=== PATIENT | female | born 1965 ===

== ENCOUNTER 2018-03-07 19:40 | Emergency (ER) | payer MEDICAID, OTHER ==
[2018-03-07 19:47] VITALS: RESP 18; TEMP 99.1
--- NOTE | 2018-03-07 21:02 | ED PDOC ---
Lower Extremity Pain/Injury Time Seen by Provider: 03/07/18 19:45 Chief Complaint (Nursing): Lower Extremity Problem/Injury Chief Complaint (Provider): Lower Extremity Problem/Injury History Per: Patient History/Exam Limitations: no limitations Onset/Duration Of Symptoms: Hrs Current Symptoms Are (Timing): Still Present Additional Complaint(s): 53 year old female with a past medical history of HTN and diabetes presents to the ED after slipping outside her house on uneven concrete thus twisting her ankle. Patient is also complaining of swelling and pain. Patient is now in significant pain. PMD: None Provided - Ankle/Foot Description Of Injury: Fell Past Medical History Reviewed: Historical Data, Nursing Documentation, Vital Signs Vital Signs: Last Vital Signs Temp 99.1 F 03/07/18 19:44 Pulse 66 03/07/18 19:44 Resp 18 03/07/18 19:44 BP 134/51 L 03/07/18 19:44 Pulse Ox 98 03/07/18 19:44 - Medical History PMH: HTN - Surgical History Surgical History: Cholecystectomy - Family History Family History: States: No Known Family Hx - Social History Current smoker - smoking cessation education provided: No Alcohol: None Drugs: Denies - Home Medications Home Medications: Ambulatory Orders Medication Instructions Recorded Acetaminophen [Tylenol 325mg tab] 650 mg PO Q6H PRN #50 tab 01/14/16 Bismuth Subsalicylate [kaopECTATE] 262 mg PO Q4H PRN #1 bot 01/14/16 Famotidine [Pepcid] 20 mg PO BID #28 tab 01/14/16 Ondansetron [Zofran] 4 mg PO Q8H #9 tab 01/14/16 Walker [Rolling Walker] 1 dev XX PRN PRN #1 dev 03/07/18 - Allergies Allergies/Adverse Reactions: Allergies Allergy/AdvReac Type Severity Reaction Status Date / Time grape Allergy SHORTNESS Verified 01/14/16 15:13 OF BREATH morphine Allergy RASH Verified 01/14/16 15:14 apples Allergy SHORTNESS Uncoded 06/05/14 15:41 OF BREATH pears Allergy SHORTNESS Uncoded 06/05/14 15:41 OF BREATH Review of Systems ROS Statement: Except As Marked, All Systems Reviewed And Found Negative Musculoskeletal: Positive for: Foot Pain (twisted ankle swelling and pain. ) Physical Exam - Reviewed Nursing Documentation Reviewed: Yes Vital Signs Reviewed: Yes - Physical Exam Appears: Positive for: Well, Non-toxic Skin: Positive for: Normal Color, Warm, Dry Cardiovascular/Chest: Positive for: Regular Rate, Rhythm. Negative for: Murmur Respiratory: Positive for: Normal Breath Sounds. Negative for: Respiratory Distress Gastrointestinal/Abdominal: Positive for: Normal Exam, Soft. Negative for: Tenderness Extremity: Positive for: Deformity (left ankle ), Swelling (left ankle swelling of medial malleolus.), Other (neurovascular intact, pedis pulse 2+) Neurologic/Psych: Positive for: Alert, Oriented - ECG O2 Sat by Pulse Oximetry: 98 (RA) Pulse Ox Interpretation: Normal Medical Decision Making Medical Decision Making: Time: 2014 Plan: ankle injury rule out fracture vs dislocation -- Ankle Complete 3 Views BI XR -- Foot 3 Views BI XR -- Toradol 15 mg IV -- Ankle Left 3 Views Routine XR Time:2209 XR Right Foot Complete, 3 or More Views CLINICAL HISTORY: 53 years old, female; Injury or trauma; Fall; Initial encounter; Blunt trauma; Foot; Bilateral; Injury details: Left foot injury right foot comparison TECHNIQUE: Frontal, lateral and oblique views of the right foot. COMPARISON: No relevant prior studies available. FINDINGS: Bones/joints: Small bone spur obtaining is. No acute fracture. No dislocation. Soft tissues: Unremarkable. No radiopaque foreign body. IMPRESSION: Negative for acute bone abnormality Thank you for allowing us to participate in the care of your patient. Dictated and Authenticated by: Deric Nails MD 03/07/2018 10:08 PM Eastern Time ( & [place]) XR Left Foot Complete, 3 or More Views CLINICAL HISTORY: 53 years old, female; Injury or trauma; Fall; Initial encounter; Blunt trauma; Foot; Bilateral; Injury details: Left foot injury right foot comparison TECHNIQUE: Frontal, lateral and oblique views of the left foot. COMPARISON: No relevant prior studies available. FINDINGS: Bones/joints: Small bone spur calcaneus. No acute fracture. No dislocation. Soft tissues: Unremarkable. No radiopaque foreign body. IMPRESSION: Normal left foot x-rays. Small bone spur calcaneus Thank you for allowing us to participate in the care of your patient. Dictated and Authenticated by: Deric Nails MD 03/07/2018 10:02 PM Eastern Time ([place] & [place]) XR Right Ankle Complete, 3 or More Views CLINICAL HISTORY: 53 years old, female; Injury or trauma; Fall; Initial encounter; Blunt trauma; Ankle; Bilateral; Injury details: Left ankle injury right ankle comparison TECHNIQUE: Frontal, lateral and oblique views of the right ankle. COMPARISON: No relevant prior studies available. FINDINGS: Bones/joints: Unremarkable. No acute fracture. No dislocation. Soft tissues: Lateral and anterior soft tissue edema IMPRESSION: Lateral and anterior soft tissue edema. Negative for acute bone abnormality Thank you for allowing us to participate in the care of your patient. Dictated and Authenticated by: Deric Nails MD 03/07/2018 10:10 PM Eastern Time ([place] & [place]) --Patient seen by pulp screen operator, hernandez applied, and was advised to follow up with [facility]/Dr. Elizondo. Scribe Attestation: Documented by Elaina Wahl, acting as a scribe for Dr. Berhane Liao. Provider Scribe Attestation: All medical record entries made by the Scribe were at my direction and personally dictated by me. I have reviewed the chart and agree that the record accurately reflects my personal performance of the history, physical exam, medical decision making, and the department course for this patient. I have also personally directed, reviewed and agree with the discharge instructions and disposition. Disposition - Clinical Impression Clinical Impression: Ankle injury - Patient ED Disposition Is Patient to be Admitted: No Counseled Patient/Family Regarding: Studies Performed, Diagnosis, Need For Followup - Disposition Referrals: [facility] [Outside] Curtis Elizondo III, MD [Staff Provider] - Disposition: Routine/Home Disposition Time: 21:00 Condition: IMPROVED Additional Instructions: follow up with Dr Elizondo within one week take motrin for pain as needed return to ED with any worsening or concerning symptoms Prescriptions: Walker [Rolling Walker] 1 dev XX PRN PRN #1 dev PRN Reason: Pain, Moderate (4-7) Instructions: Ankle Sprain (DC) Forms: [employer] (Maltese) Print Language: RWANDAN
--- NOTE | 2018-03-07 21:26 | CP.PCM.CON ---
History of Present Illness - History of Present Illness History of Present Illness: Consult note for Dr. Elizondo 53 year old female with PMHx including DM, and HTN was seen at bedside for complaint of left ankle pain. She is accompanied by her son. She states that about an hour and a half ago she was leaving her house and twisted her left ankle. She complains of pain to her left ankle and swelling. She also states when she twisted her ankle she fell down to her knees. She states that the pain medication she got in the ED helped reliever her pain a little. She currently denies any n/v/f/sob/cp. Past Patient History - Infectious Disease Hx of Infectious Diseases: None - Past Social History Smoking Status: Former Smoker - CARDIAC Hx Hypertension: Yes - ENDOCRINE/METABOLIC Hx Diabetes Mellitus Type 2: Yes - PSYCHIATRIC Hx Substance Use: No - SURGICAL HISTORY Hx Cholecystectomy: Yes - ANESTHESIA Hx Anesthesia: Yes Hx Anesthesia Reactions: No Meds Home Medications: Home Medication List Medication Instructions Recorded Confirmed Type Walker [Rolling Walker] 1 dev XX PRN PRN #1 dev 03/07/18 Rx Allergies/Adverse Reactions: Allergies Allergy/AdvReac Type Severity Reaction Status Date / Time grape Allergy SHORTNESS Verified 01/14/16 15:13 OF BREATH morphine Allergy RASH Verified 01/14/16 15:14 apples Allergy SHORTNESS Uncoded 06/05/14 15:41 OF BREATH pears Allergy SHORTNESS Uncoded 06/05/14 15:41 OF BREATH Physical Exam - Constitutional Appears: Non-toxic, No Acute Distress - Extremities Exam Additional comments: Lower extremity focused exam: Vasc:DP pulses palpable 2/4 b/l. PT pulse palpable 1/4 on the right, PT pulse non-palpable on the left due to edema. Non-pitting edema noted to the left foot and ankle. CFT < 3 seconds to all digits b/l. Skin temperature warm to warm from proximal to distal. Neuro:Gross sensation intact b/l. Derm:Non-pitting edema noted to left ankle. No ecchymosis, no open lesions noted. Ortho: Patient is able to wiggle toes on the left foot. MMT deferred due to guarding. Pain on palpation of lateral malleolus. - Neurological Exam Neurological exam: Alert, Oriented x3 - Psychiatric Exam Psychiatric exam: Normal Affect, Normal Mood Results - Vital Signs Recent Vital Signs: Last Vital Signs Temp 99.1 F 03/07/18 19:44 Pulse 66 03/07/18 19:44 Resp 18 03/07/18 19:44 BP 134/51 L 03/07/18 19:44 Pulse Ox 98 03/07/18 21:08 Assessment & Plan - Assessment and Plan (Free Text) Assessment: 53 year old female with left ankle sprain Plan: patient examined and evaluated discussed in detail with attending, Dr. Elizondo chart, vitals reviewed radiographs reviewed- no acute fractures or dislocations noted MRI ordered left ankle dressed in well padded posterior splint with a moore compressive dressing patient to remain non-WB to LLE, patient to keep dressing c/d/i until she follows up pain medication per ED attending RICE therapy patient to follow up with Dr. Elizondo in office
[2018-03-07 23:29] VITALS: BP 157/88; PULSE 67
--- NOTE | 2018-03-08 07:44 | RAD ---
PROCEDURE: BILATERAL ANKLE RADIOGRAPHS HISTORY: fall COMPARISON: None available. TECHNIQUE: Three views of the bilateral ankles of been submitted for interpretation. FINDINGS: No acute fracture, dislocation or destructive bony lesions appreciated at the left or right ankles. The bilateral ankle mortise ease are intact. Soft tissues at the right ankle appear unremarkable. Prominent lateral malleolar soft tissue edema is identified extending into the anterior ankle soft tissues as well. Note is made of a small left plantar calcaneal spur. IMPRESSION: Left ankle soft tissue edema. No acute fracture dislocation identified bilaterally. Small plantar calcaneal spur noted.
--- NOTE | 2018-03-08 07:48 | RAD ---
PROCEDURE: BILATERAL FEET RADIOGRAPHS HISTORY: fall COMPARISON: None available. TECHNIQUE: Three views of each foot have been submitted for interpretation. FINDINGS: No acute fracture or destructive bony lesion identified bilaterally. No subluxation or dislocation either. Limited degenerative sclerosis of the cortex of the interphalangeal joints is appreciated bilaterally with joint space narrowing compatible with degenerative joint disease. Local soft tissues appear unremarkable. Patient's tenderness apparently is at the medial tarsus left foot with the frontal view including an arrow placed in this location. No suspicious fire identified here. A small calcaneal spurs noted at the left hindfoot. IMPRESSION: Degenerative changes seen the bilateral interphalangeal joints diffusely but on a mild basis. No acute fracture dislocation bilaterally including the medial left tarsus region. If symptoms persist or worsen follow-up radiography CT or MRI may be considered.
[2018-03-10 21:50] VITALS: O2SAT 98
== END 2018-03-07 23:36 | disposition home or self-care (01) ==
LOC: H.ER 19:40
DX: S93.402A Sprain of unspecified ligament of left ankle, initial encounter (principal); X50.9XXA Other and unspecified overexertion or strenuous movements or postures, initial encounter; Y92.89 Other specified places as the place of occurrence of the external cause; E11.9 Type 2 diabetes mellitus without complications; I10 Essential (primary) hypertension
CPT/HCPCS: 29515; 73610; 73630; 96374; 99285; J1885

== ENCOUNTER 2018-12-22 01:03 | Observation (INO) | payer MEDICAID ==
[2018-12-22] MEDS ORDERED: Iohexol 240 (50 ml) PO STA (01:36)
[2018-12-22] MEDS ORDERED: Iohexol 240 (50 ml) ONE (02:07)
[2018-12-22 02:12] LABS: BASO # 0.1 K/uL (0.0-0.2); BASO % 0.4 % (0.0-2.0); EOS # 0.1 K/uL (0.0-0.7); EOS % 0.9 % (0.0-4.0); HEMOGLOBIN 13.5 g/dL (12.0-16.0); LYMPH # 3.8 K/uL (1.0-4.3); LYMPH % 29.8 % (20.0-40.0); MEAN CELL VOLUME 83.8 fl (81.0-99.0); MEAN CORPUSCULAR HEMOGLOBIN 26.9 pg (27.0-31.0); MEAN CORPUSCULAR HGB CONC 32.1 g/dL (33.0-37.0); MEAN PLATELET VOLUME 8.2 fl (7.2-11.7); MONO # 0.8 K/uL (0.0-0.8); MONO % 6.2 % (0.0-10.0); NEUT % 62.7 % (50.0-75.0); NRBC % 0.1 % (0.0-0.0); RBC 5.03 Mil/uL (3.80-5.20); WHITE BLOOD COUNT 12.8 K/uL (4.8-10.8)
[2018-12-22 02:21] LABS: ALB/GLOB RATIO 1.2 (1.0-2.1); ALBUMIN 4.5 g/dL (3.5-5.0); ALT/SGPT 31 U/L (9-52); AST/SGOT 29 U/L (14-36); BLOOD UREA NITROGEN 17 mg/dl (7-17); CALCIUM 9.3 mg/dL (8.4-10.2); GFR NON-AFRICAN AMERICAN > 60; LIPASE 104 U/L (23-300)
--- NOTE | 2018-12-22 03:05 | ED PDOC ---
HPI: Abdomen Time Seen by Provider: 12/22/18 01:19 Chief Complaint (Nursing): Abdominal Pain Chief Complaint (Provider): abdominal pain History Per: Patient History/Exam Limitations: no limitations Onset/Duration Of Symptoms: Days Current Symptoms Are (Timing): Still Present Associated Symptoms: Nausea, Vomiting. denies: Fever, Chills Additional Complaint(s): Ne Gomez is a 53 year old female, with a past medical history of diabetes and diverticulitis, presents to the emergency department complaining of abdominal pain associated with nausea and vomiting. Patient states she has a history of diverticulitis, she has had x3 bouts in the past and believes this is a recurrence. Patient began having nausea and vomiting x2 today and several episodes of retching. Patient also reports having diarrhea for the past week. She saw her GI x3 days ago and is scheduled to see her surgeon for a surgery for her diverticulitis? Patient has not taken any pain medication today. She denies any fever, chills, night sweats or other medical complaints. PMD: [facility] [place] Past Medical History Reviewed: Historical Data, Nursing Documentation, Vital Signs Vital Signs: Last Vital Signs Temp 98.8 F 12/22/18 01:10 Pulse 85 12/22/18 01:10 Resp 17 12/22/18 01:10 BP 176/87 H 12/22/18 01:10 Pulse Ox 100 12/22/18 01:10 - Medical History PMH: Diabetes, Diverticulitis, HTN - Surgical History Surgical History: Cholecystectomy - Family History Family History: States: Unknown Family Hx - Social History Current smoker - smoking cessation education provided: No Alcohol: None Drugs: Denies - Home Medications Home Medications: Ambulatory Orders Medication Instructions Recorded Acetaminophen [Tylenol 325mg tab] 650 mg PO Q6H PRN #50 tab 01/14/16 Bismuth Subsalicylate [kaopECTATE] 262 mg PO Q4H PRN #1 bot 01/14/16 Famotidine [Pepcid] 20 mg PO BID #28 tab 01/14/16 Ondansetron [Zofran] 4 mg PO Q8H #9 tab 01/14/16 Walker [Rolling Walker] 1 dev XX PRN PRN #1 dev 03/07/18 - Allergies Allergies/Adverse Reactions: Allergies Allergy/AdvReac Type Severity Reaction Status Date / Time cortisone Allergy RASH Verified 12/22/18 01:14 grape Allergy SHORTNESS Verified 12/22/18 01:14 OF BREATH morphine Allergy RASH Verified 12/22/18 01:14 apples Allergy SHORTNESS Uncoded 12/22/18 01:14 OF BREATH pears Allergy SHORTNESS Uncoded 12/22/18 01:14 OF BREATH Review of Systems ROS Statement: Except As Marked, All Systems Reviewed And Found Negative Constitutional: Negative for: Fever, Chills, Sweats Gastrointestinal: Positive for: Nausea, Vomiting, Abdominal Pain Physical Exam - Reviewed Nursing Documentation Reviewed: Yes Vital Signs Reviewed: Yes - Physical Exam Appears: Positive for: Uncomfortable (Patient actively retching and unable to stand still due to abdominal pain) Head Exam: Positive for: ATRAUMATIC, NORMAL INSPECTION, NORMOCEPHALIC Skin: Positive for: Normal Color, Warm, Dry Eye Exam: Positive for: Normal appearance, EOMI, PERRL Neck: Positive for: Normal, Painless ROM, Supple Cardiovascular/Chest: Positive for: Regular Rate, Rhythm. Negative for: Murmur Respiratory: Positive for: Normal Breath Sounds. Negative for: Respiratory Distress Gastrointestinal/Abdominal: Positive for: Tenderness (on palpation of LLQ). Negative for: Guarding, Rebound Back: Positive for: Normal Inspection. Negative for: L CVA Tenderness, R CVA Tenderness, Vertebral Tenderness Extremity: Positive for: Normal ROM (upper and lower extremities). Negative for: Deformity, Swelling Neurological/Psych: Positive for: Awake, Alert, Normal Tone - Laboratory Results Result Diagrams: 12/22/18 02:00 12/22/18 02:00 Lab Results: Total Bilirubin 0.2 mg/dl (0.2-1.3) 12/22/18 02:00 AST 29 U/L (14-36) 12/22/18 02:00 ALT 31 U/L (9-52) 12/22/18 02:00 Alkaline Phosphatase 101 U/L (38-126) 12/22/18 02:00 Total Protein 8.2 G/DL (6.3-8.2) 12/22/18 02:00 Albumin 4.5 g/dL (3.5-5.0) 12/22/18 02:00 Globulin 3.8 gm/dL (2.2-3.9) 12/22/18 02:00 Albumin/Globulin Ratio 1.2 (1.0-2.1) 12/22/18 02:00 Lipase 104 U/L (23-300) 12/22/18 02:00 - ECG O2 Sat by Pulse Oximetry: 100 (RA) Pulse Ox Interpretation: Normal Medical Decision Making Medical Decision Making: Time: 01:19 Initial Impression: abdominal pain Initial Plan: --Abd Pelvis PO & IV Contrast [CT] --CMP --Lipase --CBC w/ differential --Bentyl 10 mg IM --Omnipaque 240 50 ml Po --Toradol 30 mg IVP --Zofran Inj 4 mg IVP --Reevaluation 5:[address] FINDINGS: LUNG BASES: The lung bases appear clear. No pleural effusions are seen. LIVER: Unremarkable. GALLBLADDER AND BILE DUCTS: The gallbladder appears within normal limits. No radioopaque gallstones are seen. No biliary ductal dilatation is evident. PANCREAS: Unremarkable. SPLEEN: Unremarkable. ADRENAL GLANDS: Unremarkable. KIDNEYS, URETERS, AND BLADDER: The kidneys appear within normal limits. There is no hydronephrosis or hydroureter. No urinary calculi are seen. STOMACH AND BOWEL: There is diverticulosis noted involving descending and sigmoid colon. There is marked inflammatory stranding noted adjacent to the distal descending colon compatible with acute diverticulitis. No abscess or free air. APPENDIX: No evidence of acute appendicitis on CT examination. PERITONEUM: No free fluid. No free air. LYMPH NODES: No lymphadenopathy is evident. REPRODUCTIVE: Unremarkable as visualized. VASCULATURE: No evidence of abdominal aortic aneurysm. BONES: No aggressive appearing osseous lesion. No acute osseous pathology evident. IMPRESSION: Acute descending colonic diverticulitis. Scribe Attestation: Documented by Toni Carmen, acting as a scribe for Clary Desai PA-C Provider Scribe Attestation: All medical record entries made by the Scribe were at my direction and personally dictated by me. I have reviewed the chart and agree that the record accurately reflects my personal performance of the history, physical exam, medic al decision making, and the department course for this patient. I have also personally directed, reviewed, and agree with the discharge instructions and disposition. 06:15am: pt re-assessed, pain has improved but remains steady and patient now noting that she had a BM with hematochezia. Case discussed with Jose Singh and care transferred. Patient admitted for diverticulitis. Disposition - Clinical Impression Clinical Impression: Diverticulitis - Patient ED Disposition Is Patient to be Admitted: Yes Discussed With Dr.: Jose Singh - Disposition Disposition: Routine/Home Disposition Time: 07:00 Condition: FAIR Instructions: Diverticulitis (DC) Forms: [facility] (Bhutanese) Print Language: TURKMEN
[2018-12-22] MEDS ORDERED: Sodium Chloride 0.9% 50 ML IV ONE (04:17)
[2018-12-22] MEDS ORDERED: Iohexol 300 100 ML IJ ONE (04:17)
[2018-12-22] MEDS ORDERED: Ciprofloxacin 200mg/100ml D5W 100 ML IVPB STA (06:56)
[2018-12-22] MEDS ORDERED: metroNIDAZOLE 500mg/100ml NS 100 ML IVPB STA (06:56)
[2018-12-22] MEDS ORDERED: Sodium Chloride 0.9% 1,000 ML IV STA (07:04)
[2018-12-22] MEDS: Sodium Chloride 0.9% 1,000 ML IV SCH ×2 (08:25→16:40)
[2018-12-22] MEDS: metroNIDAZOLE 500mg/100ml NS 100 ML IVPB SCH ×2 (11:26→16:40)
[2018-12-22] MEDS: Ciprofloxacin 400mg/200ml D5W 400 MG/200 ML BAG IVPB SCH ×2 (11:26→20:40)
--- NOTE | 2018-12-22 15:14 | CT ---
Date of service: 12/22/2018 PROCEDURE: CT abdomen and pelvis HISTORY: N/V, diarrhea COMPARISON: Comparison made with prior CT scan abdomen and pelvis 11/14/2013. TECHNIQUE: Contiguous axial images of the the abdomen and pelvis. Oral contrast was administered. No IV contrast given. Coronal and Sagittal reformats generated. Radiation dose: Total exam DLP = 834.68 mGy-cm. This CT exam was performed using one or more of the following dose reduction techniques: Automated exposure control, adjustment of the mA and/or kV according to patient size, and/or use of iterative reconstruction technique. FINDINGS: LOWER THORAX: Minor atelectasis/scarring changes seen both lung bases including the middle lobe and lingular regions. Heart size within range of normal. No significant pericardial effusion. There is a small hiatal hernia. LIVER: Liver is enlarged measuring over 22 cm in CC dimension. Mild diffuse fatty hepatic infiltration. No obvious hepatic mass collection or calcification. The portal the and splenic veins are opacified. GALLBLADDER AND BILE DUCTS: Cholecystectomy. Slight prominence of the common bile duct. PANCREAS: Unremarkable. No mass. No ductal dilatation. SPLEEN: Spleen exhibits normal size and attenuation pattern without mass collection or calcification. ADRENALS: There are no adrenal lesions. KIDNEYS AND URETERS: Kidneys demonstrate relatively symmetric nephrograms. No evidence of nephrolithiasis or hydronephrosis. BLADDER: Urinary bladder is partially distended. No evidence of intraluminal urinary bladder calculi. REPRODUCTIVE: Suspect uterine fibroids. Follow-up pelvic ultrasound could confirm. APPENDIX: Appendix is unremarkable. BOWEL: Evaluation of the bowel is somewhat limited due to incomplete opacification. Stomach is unopacified and incompletely distended with slight thick-walled appearance. Visualized loops of small bowel exhibit normal contour and caliber. No evidence of acute mechanical small bowel obstruction. There are scattered colonic diverticula the bulk of which arise from the sigmoid and descending colon. There is localized wall thickening of a short segment of the mid to distal descending colon consistent with acute diverticulitis. Mild infiltration and suspected small amount of fluid in the adjacent mesentery felt to be present. PERITONEUM: Unremarkable. No fluid collection. No free air. There is a small fat containing umbilical hernia. There is a tiny fat containing bilateral inguinal hernias are present. LYMPH NODES: There are a few tiny nonspecific retroperitoneal lymph nodes. VASCULATURE: Unremarkable. No aortic aneurysm. No aortic atherosclerotic calcification or mural plaque present. BONES: Minor multilevel degenerative spondylosis of the thoracic spine. OTHER FINDINGS: None. IMPRESSION: Diverticulosis with additional findings consistent with acute diverticulitis involving a short segment of the mid distal descending colon. Hepatomegaly with mild to moderate fatty hepatic infiltration. Cholecystectomy with slight prominence of the common bile duct. Suspect uterine fibroids. Follow-up pelvic ultrasound could confirm.
--- NOTE | 2018-12-22 19:10 | CP.PCM.HP ---
History of Present Illness - History of Present Illness History of Present Illness: pt sdmitted for diverticulitis at present no fcnvd bw and imaging noted gi cosnult appriciated Present on Admission - Present on Admission Any Indicators Present on Admission: Yes History of Uncontrolled Diabetes: Yes Review of Systems - Gastrointestinal Gastrointestinal: As Per HPI, Abdominal Pain, Diarrhea, Hematochezia, Nausea Past Patient History - Infectious Disease Hx of Infectious Diseases: None - Past Medical History & Family History Past Medical History?: Yes - Past Social History Smoking Status: Never Smoked - CARDIAC Hx Hypertension: Yes - PULMONARY Hx Asthma: Yes - ENDOCRINE/METABOLIC Hx Endocrine Disorders: Yes - HEMATOLOGICAL/ONCOLOGICAL Hx AIDS: No (denies) Hx Human Immunodeficiency Virus (HIV): No (denies) - MUSCULOSKELETAL/RHEUMATOLOGICAL Hx Falls: Yes (february 2018) - GASTROINTESTINAL Hx Diverticulitis: Yes Hx Nausea: Yes - PSYCHIATRIC Hx Substance Use: No (denies) - SURGICAL HISTORY Hx Cholecystectomy: Yes - ANESTHESIA Hx Anesthesia: Yes Hx Anesthesia Reactions: No Hx Malignant Hyperthermia: No Has any member of the family had a problem w/ anesthesia?: No Meds Allergies/Adverse Reactions: Allergies Allergy/AdvReac Type Severity Reaction Status Date / Time cortisone Allergy RASH Verified 12/22/18 01:14 grape Allergy SHORTNESS Verified 12/22/18 01:14 OF BREATH morphine Allergy RASH Verified 12/22/18 01:14 apples Allergy SHORTNESS Uncoded 12/22/18 01:14 OF BREATH pears Allergy SHORTNESS Uncoded 12/22/18 01:14 OF BREATH Results - Vital Signs Recent Vital Signs: Last Vital Signs Temp 97.9 F 12/22/18 16:33 Pulse 72 12/22/18 16:33 Resp 18 12/22/18 16:33 BP 146/83 12/22/18 16:33 Pulse Ox 97 12/22/18 16:33 - Labs Result Diagrams: 12/22/18 02:00 12/22/18 02:00 Labs: Laboratory Results - last 24 hr 12/22/18 12/22/18 12/22/18 02:00 02:00 08:17 WBC 12.8 H RBC 5.03 Hgb 13.5 Hct 42.1 MCV 83.8 MCH 26.9 L MCHC 32.1 L RDW 14.0 Plt Count 321 MPV 8.2 Neut % (Auto) 62.7 Lymph % (Auto) 29.8 [place] % (Auto) 6.2 Eos % (Auto) 0.9 Baso % (Auto) 0.4 Neut # (Auto) 8.0 H Lymph # (Auto) 3.8 [place] # (Auto) 0.8 Eos # (Auto) 0.1 Baso # (Auto) 0.1 Sodium 141 Potassium 3.6 Chloride 102 Carbon Dioxide 30 Anion Gap 13 BUN 17 Creatinine 0.9 Est GFR ( Amer) > 60 Est GFR (Non-Af Amer) > 60 POC Glucose (mg/dL) 101 Random Glucose 98 Calcium 9.3 Total Bilirubin 0.2 AST 29 ALT 31 Alkaline Phosphatase 101 Total Protein 8.2 Albumin 4.5 Globulin 3.8 Albumin/Globulin Ratio 1.2 Lipase 104 12/22/18 12/22/18 11:11 15:34 WBC RBC Hgb Hct MCV MCH MCHC RDW Plt Count MPV Neut % (Auto) Lymph % (Auto) [place] % (Auto) Eos % (Auto) Baso % (Auto) Neut # (Auto) Lymph # (Auto) [place] # (Auto) Eos # (Auto) Baso # (Auto) Sodium Potassium Chloride Carbon Dioxide Anion Gap BUN Creatinine Est GFR ( Amer) Est GFR (Non-Af Amer) POC Glucose (mg/dL) 93 95 Random Glucose Calcium Total Bilirubin AST ALT Alkaline Phosphatase Total Protein Albumin Globulin Albumin/Globulin Ratio Lipase Decision To Admit - Pt Status Changed To: Hospital Disposition Of: Observation - . Bed Request Type: Med/Surg Admitting Physician: Azucena Mckeon
[2018-12-23] MEDS: Sodium Chloride 0.9% 1,000 ML IV SCH ×2 (01:44→01:45)
[2018-12-23] MEDS: metroNIDAZOLE 500mg/100ml NS 100 ML IVPB SCH ×3 (01:48→16:52)
[2018-12-23 06:24] LABS: BASO # 0.1 K/uL (0.0-0.2); BASO % 0.7 % (0.0-2.0); EOS # 0.1 K/uL (0.0-0.7); EOS % 1.2 % (0.0-4.0); HEMOGLOBIN 12.3 g/dL (12.0-16.0); LYMPH # 2.7 K/uL (1.0-4.3); LYMPH % 36.7 % (20.0-40.0); MEAN CELL VOLUME 83.5 fl (81.0-99.0); MEAN CORPUSCULAR HEMOGLOBIN 27.6 pg (27.0-31.0); MEAN CORPUSCULAR HGB CONC 33.1 g/dL (33.0-37.0); MEAN PLATELET VOLUME 8.2 fl (7.2-11.7); MONO # 0.6 K/uL (0.0-0.8); NEUT # 3.9 K/uL (1.8-7.0); NEUT % 53.4 % (50.0-75.0); NRBC % 0.2 % (0.0-0.0); RBC 4.47 Mil/uL (3.80-5.20); RED CELL DISTRIBUTION WIDTH 14.3 % (11.5-14.5); WHITE BLOOD COUNT 7.3 K/uL (4.8-10.8)
[2018-12-23 06:32] LABS: ALB/GLOB RATIO 1.1 (1.0-2.1); ALBUMIN 3.4 g/dL (3.5-5.0); ALT/SGPT 33 U/L (9-52); AST/SGOT 23 U/L (14-36); BLOOD UREA NITROGEN 7 mg/dl (7-17); CALCIUM 8.1 mg/dL (8.4-10.2); GFR NON-AFRICAN AMERICAN > 60
--- NOTE | 2018-12-23 07:56 | CON ---
DATE: 12/22/2018 REFERRING PHYSICIAN: Rusty Singh DPM REASON FOR CONSULTATION: Abdominal pain. HISTORY OF PRESENT ILLNESS: This is a very pleasant 53-year-old female with a history of diverticulitis episode in this year. Had nausea, vomiting, abdominal pain, and discomfort. Has some diarrhea as well. The patient saw her GI recently and was scheduled to have elective surgery. Now comes to the hospital with abdominal pain and discomfort. PAST MEDICAL HISTORY: As above. PAST SURGICAL HISTORY: As above. MEDICATIONS: Have been reviewed. REVIEW OF SYSTEMS: All other systems have been reviewed and negative apart from the HPI. PHYSICAL EXAMINATION: VITAL SIGNS: Here in the hospital, grossly unremarkable. GENERAL: This is a pleasant middle-aged female, lying in bed comfortably, in no apparent distress. HEENT: Head: Normocephalic and atraumatic. Eyes: Pupils are equally reactive to light bilaterally. No conjunctival pallor or icterus. NECK: Supple. Normal range of motion. No lymphadenopathy appreciated. LUNGS: Coarse breath sounds bilaterally. HEART: S1 and S2. Regular rate and rhythm. No murmurs appreciated. ABDOMEN: Soft. Tender to deep palpation in the left lower quadrant. No rebound. No guarding. RECTAL: Deferred. EXTREMITIES: Pulses felt bilaterally. SKIN: Warm, dry and intact. NEUROLOGIC: A and O x3. LABORATORY DATA: Labs and radiology have been reviewed. WBC 12, hemoglobin is stable. CAT scan is pending. ASSESSMENT AND PLAN: This is a 53-year-old female with likely recurrent diverticulitis. Antibiotics for now. Pain control as needed. Once pain free, can start . Elective surgery when stable. Thank you for the consult. Marvin Bradley MD/ PhD cc: Rusty Singh DPM
--- NOTE | 2018-12-23 08:50 | CP.PCM.PN ---
Subjective - Date & Time of Evaluation Date of Evaluation: 12/23/18 Time of Evaluation: 08:49 - Subjective Subjective: no overnight events Objective - Vital Signs/Intake and Output Vital Signs (last 24 hours): Temp Pulse Resp BP Pulse Ox 97.3 F L 70 20 132/79 97 12/23/18 08:17 12/23/18 08:17 12/23/18 08:17 12/23/18 08:17 12/23/18 08:17 - Medications Medications: Current Medications Dicyclomine HCl (Bentyl) 10 mg IM QID PRN PRN Reason: pain 4-7 Last Admin: 12/23/18 04:47 Dose: 10 mg Famotidine (Pepcid) 20 mg IVP Q12 [facility]ON Last Admin: 12/22/18 21:48 Dose: 20 mg Ciprofloxacin (Cipro 400mg/200ml Dsw) 400 mg in 200 mls @ 200 mls/hr IVPB Q12 LYNDON; Protocol Last Admin: 12/22/18 20:40 Dose: 200 mls/hr Metronidazole (Flagyl 500mg/100ml Ns) 100 mls @ 100 mls/hr IVPB Q8 LYNDON; Protocol Last Admin: 12/23/18 01:48 Dose: 100 mls/hr Ketorolac Tromethamine (Toradol) 30 mg IVP Q6 PRN PRN Reason: Pain, severe (8-10) Last Admin: 12/22/18 20:38 Dose: 30 mg - Labs Labs: 12/23/18 05:08 12/23/18 05:08 - Neck Exam Neck Exam: Normal Inspection - Respiratory Exam Respiratory Exam: Clear to Ausculation Bilateral, NORMAL BREATHING PATTERN - Cardiovascular Exam Cardiovascular Exam: REGULAR RHYTHM - GI/Abdominal Exam GI & Abdominal Exam: Soft, Normal Bowel Sounds - Rectal Exam Rectal Exam: NORMAL INSPECTION Assessment and Plan - Assessment and Plan (Free Text) Assessment: 53 yo female with recurrent diverticulitis abx ADAT elective resection
[2018-12-23] MEDS: Ciprofloxacin 400mg/200ml D5W 400 MG/200 ML BAG IVPB SCH ×2 (09:05→21:18)
--- NOTE | 2018-12-23 13:36 | CP.PCM.PN ---
Subjective - Date & Time of Evaluation Date of Evaluation: 12/23/18 Time of Evaluation: 13:36 - Subjective Subjective: pt doing well, decr pain as per pt. no f/,c n/v/d. wants to eat full note dictated [id number] Objective - Vital Signs/Intake and Output Vital Signs (last 24 hours): Temp Pulse Resp BP Pulse Ox 97.3 F L 70 20 132/79 97 12/23/18 08:17 12/23/18 08:17 12/23/18 08:17 12/23/18 08:17 12/23/18 08:17 - Medications Medications: Current Medications Dicyclomine HCl (Bentyl) 10 mg IM QID PRN PRN Reason: pain 4-7 Last Admin: 12/23/18 04:47 Dose: 10 mg Famotidine (Pepcid) 20 mg IVP Q12 LYNDON Last Admin: 12/23/18 09:11 Dose: 20 mg Ciprofloxacin (Cipro 400mg/200ml Dsw) 400 mg in 200 mls @ 200 mls/hr IVPB Q12 LYNDON; Protocol Last Admin: 12/23/18 09:05 Dose: 200 mls/hr Metronidazole (Flagyl 500mg/100ml Ns) 100 mls @ 100 mls/hr IVPB Q8 LYNDON; Protocol Last Admin: 12/23/18 12:36 Dose: 100 mls/hr Ketorolac Tromethamine (Toradol) 30 mg IVP Q6 PRN PRN Reason: Pain, severe (8-10) Last Admin: 12/23/18 09:20 Dose: 30 mg - Labs Labs: 12/23/18 05:08 12/23/18 05:08
[2018-12-24] MEDS: metroNIDAZOLE 500mg/100ml NS 100 ML IVPB SCH ×3 (01:22→16:37)
[2018-12-24 06:49] LABS: BASO # 0.1 K/uL (0.0-0.2); BASO % 0.7 % (0.0-2.0); EOS # 0.1 K/uL (0.0-0.7); EOS % 1.8 % (0.0-4.0); HEMOGLOBIN 12.9 g/dL (12.0-16.0); LYMPH # 2.8 K/uL (1.0-4.3); LYMPH % 38.7 % (20.0-40.0); MEAN CELL VOLUME 84.1 fl (81.0-99.0); MEAN CORPUSCULAR HEMOGLOBIN 26.9 pg (27.0-31.0); MEAN CORPUSCULAR HGB CONC 31.9 g/dL (33.0-37.0); MEAN PLATELET VOLUME 8.4 fl (7.2-11.7); MONO # 0.5 K/uL (0.0-0.8); MONO % 7.4 % (0.0-10.0); NEUT # 3.7 K/uL (1.8-7.0); NEUT % 51.4 % (50.0-75.0); NRBC % 0.1 % (0.0-0.0); RBC 4.79 Mil/uL (3.80-5.20); RED CELL DISTRIBUTION WIDTH 14.3 % (11.5-14.5); WHITE BLOOD COUNT 7.2 K/uL (4.8-10.8)
[2018-12-24 07:03] LABS: ALBUMIN 3.9 g/dL (3.5-5.0); ALT/SGPT 32 U/L (9-52); AST/SGOT 28 U/L (14-36); BLOOD UREA NITROGEN 6 mg/dl (7-17); CALCIUM 8.7 mg/dL (8.4-10.2); GFR NON-AFRICAN AMERICAN > 60
--- NOTE | 2018-12-24 08:27 | CP.PCM.PN ---
Subjective - Date & Time of Evaluation Date of Evaluation: 12/24/18 Time of Evaluation: 08:27 - Subjective Subjective: pt doign well. no f/,c n/v/d. minimal pian. requesting food. gi consult appriciated. Objective - Vital Signs/Intake and Output Vital Signs (last 24 hours): Temp Pulse Resp BP Pulse Ox 97.4 F L 69 18 121/80 96 12/24/18 00:31 12/24/18 00:31 12/24/18 00:31 12/24/18 00:31 12/24/18 00:31 - Medications Medications: Current Medications Dicyclomine HCl (Bentyl) 10 mg IM QID PRN PRN Reason: pain 4-7 Last Admin: 12/23/18 04:47 Dose: 10 mg Diltiazem HCl (Cardizem) 30 mg PO TID [facility] Famotidine (Pepcid) 20 mg IVP Q12 LYNDON Last Admin: 12/23/18 21:19 Dose: 20 mg Ciprofloxacin (Cipro 400mg/200ml Dsw) 400 mg in 200 mls @ 200 mls/hr IVPB Q12 [facility]ON; Protocol Last Admin: 12/23/18 21:18 Dose: 200 mls/hr Metronidazole (Flagyl 500mg/100ml Ns) 100 mls @ 100 mls/hr IVPB Q8 L[facility]NDON; Protocol Last Admin: 12/24/18 01:22 Dose: 100 mls/hr Ketorolac Tromethamine (Toradol) 30 mg IVP Q6 PRN PRN Reason: Pain, severe (8-10) Last Admin: 12/23/18 19:02 Dose: 30 mg Losartan Potassium (Cozaar) 25 mg PO DAILY [facility] Metformin HCl (Glucophage) 500 mg PO DAILY L[facility] Sertraline HCl (Zoloft) 50 mg PO HS LYNDON Last Admin: 12/23/18 21:18 Dose: 50 mg - Labs Labs: 12/24/18 05:25 12/24/18 05:25 - Constitutional Appears: Well, Non-toxic, No Acute Distress - Head Exam Head Exam: ATRAUMATIC, NORMAL INSPECTION, NORMOCEPHALIC - Eye Exam Eye Exam: EOMI, Normal appearance, PERRL Pupil Exam: NORMAL ACCOMODATION, PERRL - ENT Exam ENT Exam: Mucous Membranes Moist, Normal Exam - Neck Exam Neck Exam: Full ROM, Normal Inspection. absent: Lymphadenopathy - Respiratory Exam Respiratory Exam: Clear to Ausculation Bilateral, NORMAL BREATHING PATTERN - Cardiovascular Exam Cardiovascular Exam: REGULAR RHYTHM, RRR, +S1, +S2. absent: Murmur - GI/Abdominal Exam GI & Abdominal Exam: Soft, Normal Bowel Sounds. absent: Tenderness - Extremities Exam Extremities Exam: Full ROM, Normal Capillary Refill, Normal Inspection. absent: Joint Swelling, Pedal Edema - Back Exam Back Exam: NORMAL INSPECTION - Neurological Exam Neurological Exam: Alert, Awake, CN II-XII Intact, Normal Gait, Oriented x3 - Psychiatric Exam Psychiatric exam: Normal Affect, Normal Mood - Skin Skin Exam: Dry, Intact, Normal Color, Warm Assessment and Plan (1) DVT prophylaxis Assessment & Plan: scd nad ae hose ambulation Status: Acute (2) Diverticulitis Assessment & Plan: gi adv to bland today pain and nausea contro; ivf cipro/flagyl likely dc today Status: Acute
[2018-12-24 08:30] VITALS: RESP 20; TEMP 97.9
[2018-12-24] MEDS ORDERED: Potassium Chloride 20 mEq ER Tab PO ONE (09:39)
[2018-12-24] MEDS: Ciprofloxacin 400mg/200ml D5W 400 MG/200 ML BAG IVPB SCH (09:58)
--- NOTE | 2018-12-24 10:16 | CP.PCM.PN ---
Subjective - Date & Time of Evaluation Date of Evaluation: 12/24/18 Time of Evaluation: 10:15 - Subjective Subjective: no overnight events Objective - Vital Signs/Intake and Output Vital Signs (last 24 hours): Temp Pulse Resp BP Pulse Ox 97.9 F 75 20 148/85 95 12/24/18 08:29 12/24/18 09:58 12/24/18 08:29 12/24/18 09:58 12/24/18 08:29 - Medications Medications: Current Medications Dicyclomine HCl (Bentyl) 10 mg IM QID PRN PRN Reason: pain 4-7 Last Admin: 12/23/18 04:47 Dose: 10 mg Diltiazem HCl (Cardizem) 30 mg PO TID [facility] Last Admin: 12/24/18 09:57 Dose: 30 mg Famotidine (Pepcid) 20 mg IVP Q12 [facility] Last Admin: 12/23/18 21:19 Dose: 20 mg Ciprofloxacin (Cipro 400mg/200ml Dsw) 400 mg in 200 mls @ 200 mls/hr IVPB Q12 LYNDON; Protocol Last Admin: 12/24/18 09:58 Dose: 200 mls/hr Metronidazole (Flagyl 500mg/100ml Ns) 100 mls @ 100 mls/hr IVPB Q8 LYNDON; Protocol Last Admin: 12/24/18 09:59 Dose: 100 mls/hr Ketorolac Tromethamine (Toradol) 30 mg IVP Q6 PRN PRN Reason: Pain, severe (8-10) Last Admin: 12/23/18 19:02 Dose: 30 mg Losartan Potassium (Cozaar) 25 mg PO DAILY [facility] Last Admin: 12/24/18 09:58 Dose: 25 mg Metformin HCl (Glucophage) 500 mg PO DAILY [facility] Last Admin: 12/24/18 09:59 Dose: 500 mg Sertraline HCl (Zoloft) 50 mg PO HS [facility] Last Admin: 12/23/18 21:18 Dose: 50 mg - Labs Labs: 12/24/18 05:25 12/24/18 05:25 - Head Exam Head Exam: NORMOCEPHALIC - Neck Exam Neck Exam: Normal Inspection - Respiratory Exam Respiratory Exam: Clear to Ausculation Bilateral, NORMAL BREATHING PATTERN - GI/Abdominal Exam GI & Abdominal Exam: Soft, Tenderness, Normal Bowel Sounds Assessment and Plan - Assessment and Plan (Free Text) Assessment: 53 yo female with recurrent diverticulitis pain improving dc planning for elective resection
--- NOTE | 2018-12-24 14:11 | PN ---
DATE: 12/23/2018 SUBJECTIVE: The patient is in bed, doing well with mild left lower quadrant pain. No fever, chills, nausea, vomiting, or diarrhea. Gastroenterology consult is appreciated. The a.m. labs are noted. Vital signs are noted. REVIEW OF SYSTEMS: Left lower quadrant pain. PHYSICAL EXAMINATION: GENERAL: Cognitively intact. HEART: Regular rate and rhythm. No murmurs, rubs, or gallops. S1 and S2. LUNGS: Clear. ABDOMEN: Soft. It is only tender in the left lower quadrant; per patient, it is improving. Bowel sounds present x4. EXTREMITIES: Distal pulses and motor sensation intact. DIAGNOSES AND PLAN: 1. Diverticulitis. Continue medication. Gastroenterology will advance diet to clear liquid. As per Gastroenterology, further advance as per the patient's tolerance. Gastrointestinal prophylaxis with H2 and discharge when cleared. Deep venous thrombosis prophylaxis with SCD, ae hose, ambulation. 2. Diabetes and dyslipidemia. Continue home medications. MARLENI Vazquez RADHA
[2018-12-24 16:20] VITALS: BP 118/79; PULSE 72; O2SAT 99
== END 2018-12-24 19:20 | disposition home or self-care (01) ==
LOC: H.ER 01:03 → H.ERHOLD 06:57 → H.MEDSURG1 09:24
PROVIDERS: ADMIT Family Medicine; ATTEND Family Medicine
DX: K57.32 Diverticulitis of large intestine without perforation or abscess without bleeding (principal); E11.9 Type 2 diabetes mellitus without complications; I10 Essential (primary) hypertension; E78.5 Hyperlipidemia, unspecified; Z88.5 Allergy status to narcotic agent; Z91.018 Allergy to other foods
CPT/HCPCS: 36415; 74177; 80053; 82948; 83690; 85025; 96361; 96365; 96366; 96367; 96368; 96372; 96375; 96376; 99285; G0378; J0500; J0744; J1885; J2405; J7030; Q9966; Q9967

== ENCOUNTER 2019-01-28 15:50 | Emergency (ER) | payer MEDICAID ==
[2019-01-28 17:13] VITALS: RESP 16; TEMP 98.4
--- NOTE | 2019-01-28 17:45 | ED PDOC ---
HPI: Abdomen Time Seen by Provider: 01/28/19 17:22 Chief Complaint (Nursing): GI Problem Chief Complaint (Provider): Abdominal pain History Per: Patient History/Exam Limitations: no limitations Additional Complaint(s): Pt reports abdominal pain, nausea, and vomiting X 2 days, returned from [place] last week. Denies fever, vomiting, dysuria, hematuria, CP, SOB. Past Medical History Reviewed: Nursing Documentation, Vital Signs Vital Signs: Last Vital Signs Temp 98.4 F 01/28/19 17:10 Pulse 90 01/28/19 17:10 Resp 16 01/28/19 17:10 BP 150/89 01/28/19 17:10 Pulse Ox 100 01/28/19 17:10 Primary Care Provider: George Green - Medical History PMH: Asthma, Diabetes, Diverticulitis, HTN Denies: HIV (denies) - Surgical History Surgical History: Cholecystectomy - Family History Family History: States: Unknown Family Hx - Living Arrangements Living Arrangements: With Family - Social History Current smoker - smoking cessation education provided: No Alcohol: None - Home Medications Home Medications: Ambulatory Orders Medication Instructions Recorded Sertraline [Zoloft] 50 mg PO HS 12/23/18 Valsartan [Diovan] 20 mg PO DAILY 12/23/18 diltiaZEM [Cardizem] 90 mg PO DAILY 12/23/18 metFORMIN [glucOPHAGE] 500 mg PO DAILY 12/23/18 Ciprofloxacin HCl [Cipro] 500 mg PO BID #14 tablet 12/24/18 Dicyclomine [Bentyl] 10 mg PO QID #20 cap 12/24/18 Metronidazole [Flagyl] 500 mg PO Q8 #21 tab 12/24/18 Amoxicillin/Clavulanate [Augmentin 1 tab PO BID #13 tab 01/28/19 875 MG-125 MG] Dicyclomine [Bentyl] 20 mg PO QID PRN #10 tab 01/28/19 Ondansetron ODT [Zofran ODT] 4 mg PO Q8H PRN #20 odt 01/28/19 metroNIDAZOLE [Flagyl] 500 mg PO TID #29 tab 01/28/19 - Allergies Allergies/Adverse Reactions: Allergies Allergy/AdvReac Type Severity Reaction Status Date / Time cortisone Allergy RASH Verified 12/22/18 01:14 grape Allergy SHORTNESS Verified 12/22/18 01:14 OF BREATH morphine Allergy RASH Verified 12/22/18 01:14 apples Allergy SHORTNESS Uncoded 12/22/18 01:14 OF BREATH pears Allergy SHORTNESS Uncoded 12/22/18 01:14 OF BREATH Review of Systems Constitutional: Negative for: Fever, Chills Cardiovascular: Negative for: Chest Pain, Palpitations Respiratory: Negative for: Cough, Shortness of Breath Gastrointestinal: Positive for: Nausea, Abdominal Pain, Diarrhea. Negative for: Vomiting Genitourinary Female: Negative for: Dysuria, Hematuria Musculoskeletal: Negative for: Back Pain Skin: Negative for: Rash, Lesions Neurological: Negative for: Headache Physical Exam - Reviewed Nursing Documentation Reviewed: Yes Vital Signs Reviewed: Yes - Physical Exam Appears: Positive for: Uncomfortable Head Exam: Positive for: ATRAUMATIC, NORMAL INSPECTION Skin: Positive for: Normal Color, Warm, Dry Eye Exam: Positive for: Normal appearance, EOMI, PERRL Cardiovascular/Chest: Positive for: Regular Rate, Rhythm Respiratory: Positive for: Normal Breath Sounds Gastrointestinal/Abdominal: Positive for: Bowel Sounds, Soft, Tenderness (Generalized, >LUQ), Other (Obese). Negative for: Guarding, Rebound Extremity: Positive for: Normal ROM Neurological/Psych: Positive for: Awake, Alert, Oriented - Laboratory Results Result Diagrams: 01/28/19 18:31 01/28/19 18:31 - ECG O2 Sat by Pulse Oximetry: 100 Medical Decision Making Medical Decision Makin yo female with nausea, abdominal pain and diarrhea. - labs - EKG - CT abd/pelvis - Bentyl - IVF - Zofran 2034 CT A/P FINDINGS: LUNG BASES: The lung bases appear clear. No pleural effusions are seen. LIVER: There is diffuse hepatic hypoattenuation compatible with fatty infiltration. There is hepatomegaly. The liver measured 23 cm in the midclavicular line. GALLBLADDER AND BILE DUCTS: Status post cholecystectomy. No biliary ductal dilatation is evident. PANCREAS: Unremarkable. SPLEEN: Unremarkable. ADRENAL GLANDS: Unremarkable. KIDNEYS, URETERS, AND BLADDER: The kidneys appear within normal limits. There is no hydronephrosis or hydroureter. No urinary calculi are seen. The urinary bladder appeared normal in size and configuration. STOMACH AND BOWEL: Unremarkable appearance of the stomach. No evidence of bowel obstruction. There is mild mucosal wall thickening and fluid in the lumen throughout the small intestinal tract are compatible with diffuse enteritis. Infectious or inflammatory etiologies are thought most likely. There is diverticulosis coli again seen in the descending and sigmoid colon. Subtle pericolonic haziness is seen involving distal descending colon compatible with mild acute diverticulitis. No pericolonic abscess formation or microperforation is detected. APPENDIX: No evidence of acute appendicitis on CT examination. PERITONEUM: No free fluid. No free air. LYMPH NODES: No lymphadenopathy is evident. REPRODUCTIVE: Unremarkable as visualized. VASCULATURE: No evidence of abdominal aortic aneurysm. Minor atherosclerotic vascular plaquing is noted. BONES: No aggressive appearing osseous lesion. No acute osseous pathology evident. IMPRESSION: 1. Diverticulosis coli in the left hemicolon with evidence of mild acute diverticulitis involving distal descending colon. 2. Evidence of diffuse enteritis. 3. Status post cholecystectomy. 4. Fatty liver. Disposition - Clinical Impression Clinical Impression: Diverticulitis, Enteritis, UTI (urinary tract infection) - Disposition Referrals: George Green MD [Family Provider] - Disposition: Routine/Home Disposition Time: 00:00 Condition: IMPROVED Prescriptions: Amoxicillin/Clavulanate [Augmentin 875 MG-125 MG] 1 tab PO BID #13 tab Dicyclomine [Bentyl] 20 mg PO QID PRN #10 tab PRN Reason: Pain, Moderate (4-7) metroNIDAZOLE [Flagyl] 500 mg PO TID #29 tab Ondansetron ODT [Zofran ODT] 4 mg PO Q8H PRN #20 odt PRN Reason: Nausea/Vomiting Instructions: Urinary Tract Infections in Adults, Diarrhea in Adolescents and Adults, Diverticulitis Forms: [employer] (Thai) Print Language: LIBYAN
[2019-01-28] MEDS: Sodium Chloride 0.9% 1,000 ML IV STA (18:26)
[2019-01-28 18:35] LABS: BASO # 0.1 K/uL (0.0-0.2); BASO % 0.7 % (0.0-2.0); EOS % 0.4 % (0.0-4.0); LYMPH # 2.1 K/uL (1.0-4.3); LYMPH % 20.3 % (20.0-40.0); MEAN CELL VOLUME 83.4 fl (81.0-99.0); MEAN CORPUSCULAR HEMOGLOBIN 27.5 pg (27.0-31.0); MEAN PLATELET VOLUME 7.8 fl (7.2-11.7); MONO # 0.8 K/uL (0.0-0.8); MONO % 8.1 % (0.0-10.0); NEUT # 7.3 K/uL (1.8-7.0); NEUT % 70.5 % (50.0-75.0); NRBC % 0.1 % (0.0-0.0); RBC 5.09 Mil/uL (3.80-5.20); WHITE BLOOD COUNT 10.3 K/uL (4.8-10.8)
[2019-01-28 18:40] LABS: PROTHROMBIN TIME 11.5 Seconds (9.8-13.1)
[2019-01-28 18:42] LABS: PARTIAL THROMBOPLASTIN TIME 30.7 Seconds (25.6-37.1)
[2019-01-28 18:44] LABS: ALB/GLOB RATIO 1.1 (1.0-2.1); ALBUMIN 4.4 g/dL (3.5-5.0); BLOOD UREA NITROGEN 13 mg/dl (7-17); CALCIUM 8.7 mg/dL (8.4-10.2); GFR NON-AFRICAN AMERICAN > 60; LIPASE 58 U/L (23-300)
[2019-01-28 18:45] LABS: ALT/SGPT 27 U/L (9-52); AST/SGOT 31 U/L (14-36)
[2019-01-28 18:50] LABS: SQUAMOUS EPITHIAL 6 /hpf (0-5); URINE BACTERIA OCC (<OCC); URINE BILIRUBIN NEGATIVE (NEGATIVE); URINE BLOOD SMALL (NEGATIVE); URINE CLARITY SLIGHTY-CLOUDY (Clear); URINE COLOR YELLOW (YELLOW); URINE GLUCOSE (UA) NEG (NEGATIVE); URINE LEUKOCYTE ESTERASE SMALL Leu/uL (Negative); URINE PROTEIN NEGATIVE (NEGATIVE); URINE UROBILINOGEN 0.2-1.0 mg/dL (0.2-1.0)
[2019-01-28] MEDS ORDERED: Iohexol 300 100 ML IJ ONE (19:27)
[2019-01-28] MEDS ORDERED: Sodium Chloride 0.9% 50 ML IV ONE (19:27)
[2019-01-28] MEDS ORDERED: Amoxicillin-Clav 875-125 mg Tab PO STA (20:54)
[2019-01-28] MEDS ORDERED: metroNIDAZOLE 500mg/100ml NS 100 ML IVPB ONE (21:40)
[2019-01-28] MEDS: metroNIDAZOLE 500mg/100ml NS 100 ML IV STA (21:44)
[2019-01-29] MEDS ORDERED: cefTRIAXone (Rocephin) 1 gm Inj ONE (00:55)
[2019-01-29 06:42] VITALS: BP 140/90; PULSE 77
--- NOTE | 2019-01-29 11:29 | CARD ---
APPROVED REPORT Date of service: 01/28/2019 EKG Measurement Heart [id number] <Conclusion> Normal sinus rhythm Basline artifact Otherwise normal ECG
--- NOTE | 2019-01-29 11:37 | CT ---
Date of service: 01/28/2019 PROCEDURE: CT Abdomen and Pelvis with contrast HISTORY: Left-sided abdominal pain, diarrhea. COMPARISON: 12/22/2018. CT abdomen and pelvis. TECHNIQUE: Intravenous contrast dose: 95 cc Omnipaque 300. Radiation dose: Total exam DLP = 841.67 mGy-cm. This CT exam was performed using one or more of the following dose reduction techniques: Automated exposure control, adjustment of the mA and/or kV according to patient size, and/or use of iterative reconstruction technique. FINDINGS: LOWER THORAX: Unremarkable. LIVER: Hepatic steatosis. No focal masses. No intrahepatic bile duct dilatation or perihepatic ascites. GALLBLADDER AND BILE DUCTS: Status post cholecystectomy. No abnormality is seen in the gallbladder fossa. PANCREAS: Unremarkable. No gross lesion or ductal dilatation. SPLEEN: Unremarkable. ADRENALS: Unremarkable. No mass. KIDNEYS AND URETERS: Unremarkable. No hydronephrosis. No solid mass. VASCULATURE: Unremarkable. No aortic aneurysm. No atherosclerotic calcification or mural plaque present. BOWEL: Improving diverticulitis at the junction of the descending colon and sigmoid. APPENDIX: Normal appendix. PERITONEUM: Unremarkable. No free fluid. No free air. LYMPH NODES: Unremarkable. No enlarged lymph nodes. BLADDER: Unremarkable. REPRODUCTIVE: Anteverted uterus containing fundal fibroid. BONES: No acute fracture. OTHER FINDINGS: None. IMPRESSION: Substantial improvement without complete resolution with respect to short segment diverticulitis limited to the distal descending colon and adjacent sigmoid identified on the prior study 12/22/2018. Additional benign and/or incidental findings described above. Concordant results (preliminary interpretation) provided by [employer]. Procedure Completed: 19:40. Preliminary Report: Interpreted and electronically signed: 20:37. Final Interpretation: 11:33. January 29, 2019.
[2019-01-31 16:48] VITALS: O2SAT 100
== END 2019-01-29 02:30 | disposition home or self-care (01) ==
LOC: H.ER 15:50
DX: K52.9 Noninfective gastroenteritis and colitis, unspecified (principal); K57.32 Diverticulitis of large intestine without perforation or abscess without bleeding; N39.0 Urinary tract infection, site not specified; E11.9 Type 2 diabetes mellitus without complications; I10 Essential (primary) hypertension; Z79.84 Long term (current) use of oral hypoglycemic drugs
CPT/HCPCS: 74177; 80053; 81003; 82948; 83690; 85025; 85610; 85730; 87040; 93005; 96361; 96374; 96375; 96376; 99284; J0696; J2405; J7030; Q9967